=== PATIENT | female | born 1985 | race Caucasian/White ===

== ENCOUNTER 2017-01-09 10:44 | Observation (INO) | payer OTHER ==
[~2017-01-09] VITALS: Ht 180.3 cm; Wt 154.6 kg
[~2017-01-09 10:44] MED LIST: CLINDAMYCIN300 M1 PO; CORTISPORIN OP7.5 ML OP; FLEXERIL PO; FLUOXETINE20 MG PO; MOTRIN800 MG PO; NO HOME MEDS; TESSALON PER100 MG PO; ULTRAM50 M1 PO; ZPAK PO
[2017-01-09 11:56] LABS: HEMATOCRIT 41.9 % (37.0-47.0); HEMOGLOBIN 14.1 g/dl (12.0-16.0); IMMATURE GRANULOCYTES 0.4 % (0.0-1.0); MEAN CELL VOLUME 91.1 fL CALC (80.0-100.0); MEAN CORPUSCULAR HGB 30.7 pG CALC (26.0-32.0); MEAN CORPUSCULAR HGB CONC 33.7 g/L CALC (32.0-36.0); NEUT# 6.2 thou/uL (2.00-7.15); RED BLOOD COUNT 4.6 mill/uL (4.20-5.60); RED CELL DISTRI WIDTH 13.3 % (11.5-15.5)
[2017-01-09 12:02] LABS: BARBITURATES NEGATIVE (NEGATIVE); COCAINE NEGATIVE (NEGATIVE); METHADONE NEGATIVE (NEGATIVE); OXCYCODONE NEGATIVE (NEGATIVE); TETRAHYDROCANNABIONOL NEGATIVE (NEGATIVE); TRICYLIC ANTIDEPRESSANTS NEGATIVE (NEGATIVE)
[2017-01-09 12:03] LABS: ALKALINE PHOSPHATASE 57 u/l (38-126); ANION GAP 12 (6-22 (CALC)); BILIRUBIN, TOTAL 0.4 mg/dL (0.0-1.4); BUN 7 mg/dL (7-17); BUN/CREATININE RATIO 11 (12-20 (CALC)); CALCIUM 9.4 mg/dL (8.4-10.2); CARBON DIOXIDE 25 mmol/l (22-30); CHLORIDE 106 mmol/l (95-108); CREATININE 0.7 mg/dL (0.5-1.0); GFR > 60 ML/MIN (>=60 (CALC)); GFR FOR AFR.AMER. > 60 ML/MIN (>=60 (CALC)); GLUCOSE 85 mg/dL (65-105); POTASSIUM 4.6 mmol/l (3.5-5.1); SGOT/AST 14 u/l (14-36); SGPT/ALT 33 u/l (9-52); SODIUM 139 mmol/l (137-146); TOTAL PROTEIN 6.4 g/dL (6.3-8.2)
[2017-01-09] MEDS ORDERED: VYVANSE40 M1 PO (13:24)
[2017-01-09] MEDS ORDERED: LATUDA40 MG PO (13:25)
[2017-01-09 15:52] VITALS: BP 152/77
[2017-01-09 20:00] VITALS: BP 122/62
[2017-01-10] VITALS: BP 127/76
[2017-01-10 04:00] VITALS: BP 136/77
[2017-01-10 06:00] VITALS: BP 79/39
[2017-01-10 07:07] LABS: CHOLESTEROL HDL RATIO 6.7 (<4.4 (CALC))
[2017-01-10] MEDS ORDERED: AMLODIPINE BESYL5 MG PO (09:17)
[2017-01-10] MEDS ORDERED: LIPITOR10 M1 PO (09:18)
[2017-01-10] MEDS ORDERED: NICOTINE T21 MG/PATC TD (09:18)
[2017-01-10 09:20] VITALS: BP 138/71
== END 2017-01-10 10:16 | disposition home or self-care (01) | DRG 313 ==
LOC: ENPENDDIS → ED 10:44 → ED-I 12:58 → ED 13:25 → ICU 13:26
PROVIDERS: Emergency Medicine; ADMIT Internal Medicine; ATTEND Internal Medicine
DX: R07.89 Other chest pain (principal); E66.01 Morbid (severe) obesity due to excess calories; I10 Essential (primary) hypertension; F31.9 Bipolar disorder, unspecified; F41.9 Anxiety disorder, unspecified; F17.210 Nicotine dependence, cigarettes, uncomplicated; F98.8 Other specified behavioral and emotional disorders with onset usually occurring in childhood and adolescence
CPT/HCPCS: G0378

== ENCOUNTER 2017-03-09 17:49 | Emergency (ER) | payer OTHER ==
[~2017-03-09] VITALS: Ht 180.3 cm; Wt 151.0 kg
[~2017-03-09 17:49] MED LIST changes: +AMLODIPINE BESYL5 MG PO; +LATUDA40 MG PO; +LIPITOR10 M1 PO; +NICOTINE T21 MG/PATC TD; +VYVANSE40 M1 PO
[2017-03-09 20:25] LABS: HEMATOCRIT 42.8 % (37.0-47.0); HEMOGLOBIN 14.4 g/dl (12.0-16.0); IMMATURE GRANULOCYTES 0.5 % (0.0-1.0); MEAN CELL VOLUME 91.6 fL CALC (80.0-100.0); MEAN CORPUSCULAR HGB 30.8 pG CALC (26.0-32.0); MEAN CORPUSCULAR HGB CONC 33.6 g/L CALC (32.0-36.0); RED BLOOD COUNT 4.67 mill/uL (4.20-5.60); RED CELL DISTRI WIDTH 13.2 % (11.5-15.5)
[2017-03-09 20:26] LABS: NEUT# 8.93 thou/uL (2.00-7.15)
[2017-03-09 20:27] LABS: URINE BILIRUBIN - DIPSTICK NEGATIVE (NEGATIVE); URINE BLOOD DIPSTICK NEGATIVE (NEGATIVE); URINE CLARITY CLOUDY; URINE COLOR YELLOW; URINE GLUCOSE - DIPSTICK NEGATIVE (NEGATIVE); URINE KETONE TRACE mg/dL (NEGATIVE); URINE LEUK ESTERASE NEGATIVE (NEGATIVE); URINE NITRITE - DIPSTICK NEGATIVE (Negative); URINE PH 5.5 (4.5-8.0); URINE PROTEIN - DIPSTICK NEGATIVE (NEG-TRACE); URINE SPECIFIC GRAVITY 1.025; URINE UROBILINOGEN - DIPSTICK 0.2 E.U./dL (0.2)
[2017-03-09 20:35] LABS: ALBUMIN 4.3 g/dL (3.2-5.0); ALKALINE PHOSPHATASE 64 u/l (38-126); AMYLASE < 30 u/l (30-110); ANION GAP 15 (6-22 (CALC)); BILIRUBIN, TOTAL 0.5 mg/dL (0.0-1.4); BUN 10 mg/dL (7-17); BUN/CREATININE RATIO 12 (12-20 (CALC)); CARBON DIOXIDE 23 mmol/l (22-30); CHLORIDE 107 mmol/l (95-108); CREATININE 0.8 mg/dL (0.5-1.0); GFR > 60 ML/MIN (>=60 (CALC)); GFR FOR AFR.AMER. > 60 ML/MIN (>=60 (CALC)); GLUCOSE 96 mg/dL (65-105); LIPASE 33 u/l (23-300); POTASSIUM 3.9 mmol/l (3.5-5.1); SGOT/AST 17 u/l (14-36); SGPT/ALT 38 u/l (9-52); SODIUM 142 mmol/l (137-146); TOTAL PROTEIN 7.4 g/dL (6.3-8.2)
[2017-03-10] MEDS ORDERED: PROTONIX40 MG PO (00:03)
[2017-03-10 00:25] VITALS: BP 168/86
== END 2017-03-10 00:25 | disposition home or self-care (01) | DRG 392 ==
LOC: ED 17:49
PROVIDERS: Emergency Medicine
DX: R10.13 Epigastric pain (principal); I10 Essential (primary) hypertension; F31.9 Bipolar disorder, unspecified; F41.9 Anxiety disorder, unspecified; F17.210 Nicotine dependence, cigarettes, uncomplicated
CPT/HCPCS: S0164

== ENCOUNTER 2017-09-28 11:03 | Emergency (ER) | payer OTHER ==
[~2017-09-28] VITALS: Ht 180.3 cm; Wt 129.0 kg
[~2017-09-28 11:03] MED LIST changes: +CELEBREX100 M1 PO; +PROTONIX40 MG PO; +TOPAMAX50 M1 PO
[2017-09-28 11:59] LABS: HEMATOCRIT 43.8 % (37.0-47.0); HEMOGLOBIN 14.3 g/dl (12.0-16.0); IMMATURE GRANULOCYTES 0.2 % (0.0-1.0); MEAN CELL VOLUME 93.2 fL CALC (80.0-100.0); MEAN CORPUSCULAR HGB 30.4 pG CALC (26.0-32.0); MEAN CORPUSCULAR HGB CONC 32.6 g/L CALC (32.0-36.0); NEUT# 6.02 thou/uL (2.00-7.15); RED BLOOD COUNT 4.7 mill/uL (4.20-5.60); RED CELL DISTRI WIDTH 12.8 % (11.5-15.5)
[2017-09-28] MEDS ORDERED: NAPROSYN500 MG PO (12:48)
[2017-09-28] MEDS ORDERED: ZITHROMAX250 MG PO (12:48)
[2017-09-28 13:00] VITALS: BP 157/88
== END 2017-09-28 13:00 | disposition home or self-care (01) | DRG 153 ==
LOC: ED 11:03
PROVIDERS: Emergency Medicine
DX: J02.9 Acute pharyngitis, unspecified (principal); F17.210 Nicotine dependence, cigarettes, uncomplicated; I10 Essential (primary) hypertension; F31.9 Bipolar disorder, unspecified

== ENCOUNTER 2018-01-14 12:37 | Emergency (ER) | payer OTHER ==
[~2018-01-14] VITALS: Ht 180.3 cm; Wt 110.0 kg
[~2018-01-14 12:37] MED LIST changes: +NAPROSYN500 MG PO; +ZITHROMAX250 MG PO
[2018-01-14 14:52] LABS: HEMATOCRIT 42.1 % (37.0-47.0); HEMOGLOBIN 13.8 g/dl (12.0-16.0); IMMATURE GRANULOCYTES 0.3 % (0.0-5.0); MEAN CELL VOLUME 93.8 fL CALC (80.0-100.0); MEAN CORPUSCULAR HGB 30.7 pG CALC (26.0-32.0); MEAN CORPUSCULAR HGB CONC 32.8 g/L CALC (32.0-36.0); NEUT# 6.96 thou/uL (2.00-7.15); RED BLOOD COUNT 4.49 mill/uL (4.20-5.60); RED CELL DISTRI WIDTH 12.7 % (11.5-15.5)
[2018-01-14 14:55] LABS: URINE BILIRUBIN - DIPSTICK NEGATIVE (NEGATIVE); URINE BLOOD DIPSTICK LARGE (NEGATIVE); URINE CLARITY HAZY; URINE COLOR YELLOW; URINE GLUCOSE - DIPSTICK NEGATIVE (NEGATIVE); URINE KETONE NEGATIVE (NEGATIVE); URINE LEUK ESTERASE TRACE (NEGATIVE); URINE NITRITE - DIPSTICK NEGATIVE (Negative); URINE PROTEIN - DIPSTICK NEGATIVE (NEG-TRACE); URINE UROBILINOGEN - DIPSTICK 0.2 E.U./dL (0.2)
[2018-01-14 14:56] LABS: URINE BACTERIA FEW hpf; URINE EPITHELIAL CELLS MODERATE EPI/hpf (0-FEW); URINE RBC 25-50 RBC/hpf (0-5); URINE WBC 0-2 WBC/hpf (0-5)
[2018-01-14 14:57] LABS: BARBITURATES NEGATIVE (NEGATIVE); COCAINE NEGATIVE (NEGATIVE); METHADONE NEGATIVE (NEGATIVE); OXCYCODONE NEGATIVE (NEGATIVE); TETRAHYDROCANNABIONOL NEGATIVE (NEGATIVE); TRICYLIC ANTIDEPRESSANTS NEGATIVE (NEGATIVE)
[2018-01-14 15:04] LABS: ALBUMIN 3.5 g/dL (3.2-5.0); ALKALINE PHOSPHATASE 46 u/l (38-126); ANION GAP 13 (6-22 (CALC)); BILIRUBIN, TOTAL 0.4 mg/dL (0.0-1.4); BUN 11 mg/dL (7-17); BUN/CREATININE RATIO 14 (12-20 (CALC)); CARBON DIOXIDE 20 mmol/l (22-30); CHLORIDE 113 mmol/l (95-108); CREATININE 0.8 mg/dL (0.5-1.0); GFR > 60 ML/MIN (>=60 (CALC)); GFR FOR AFR.AMER. > 60 ML/MIN (>=60 (CALC)); POTASSIUM 4.3 mmol/l (3.5-5.1); SGOT/AST 9 u/l (14-36); SGPT/ALT 26 u/l (9-52); SODIUM 142 mmol/l (137-146)
[2018-01-14 15:50] VITALS: BP 102/73
== END 2018-01-14 15:50 | disposition home or self-care (01) ==
LOC: ED 12:37
PROVIDERS: Emergency Medicine
DX: N99.820 Postprocedural hemorrhage of a genitourinary system organ or structure following a genitourinary system procedure (principal); R53.1 Weakness; I10 Essential (primary) hypertension; F31.9 Bipolar disorder, unspecified; F17.210 Nicotine dependence, cigarettes, uncomplicated

== ENCOUNTER 2019-01-01 03:13 | Emergency (ER) | payer OTHER ==
[~2019-01-01] VITALS: Ht 180.3 cm; Wt 127.3 kg
[2019-01-01 04:39] LABS: HEMOGLOBIN 14.4 g/dl (12.0-16.0); IMMATURE GRANULOCYTES 0.5 % (0.0-5.0); MEAN CELL VOLUME 94.6 fL CALC (80.0-100.0); MEAN CORPUSCULAR HGB CONC 32.7 g/L CALC (32.0-36.0); NEUT# 11.26 thou/uL (2.00-7.15); RED BLOOD COUNT 4.65 mill/uL (4.20-5.60)
[2019-01-01 04:40] LABS: URINE BILIRUBIN - DIPSTICK NEGATIVE (NEGATIVE); URINE BLOOD DIPSTICK NEGATIVE (NEGATIVE); URINE COLOR YELLOW; URINE GLUCOSE - DIPSTICK NEGATIVE (NEGATIVE); URINE KETONE NEGATIVE (NEGATIVE); URINE LEUK ESTERASE NEGATIVE (NEGATIVE); URINE NITRITE - DIPSTICK NEGATIVE (Negative); URINE PROTEIN - DIPSTICK NEGATIVE (NEG-TRACE); URINE SPECIFIC GRAVITY >=1.030; URINE UROBILINOGEN - DIPSTICK 0.2 E.U./dL (0.2)
[2019-01-01 04:50] LABS: ALKALINE PHOSPHATASE 50 u/l (38-126); AMYLASE 48 u/l (30-110); ANION GAP 14 (6-22 (CALC)); BILIRUBIN, TOTAL 0.3 mg/dL (0.0-1.4); BUN 15 mg/dL (7-17); BUN/CREATININE RATIO 19 (12-20 (CALC)); CARBON DIOXIDE 23 mmol/l (22-30); CHLORIDE 109 mmol/l (95-108); CREATININE 0.8 mg/dL (0.5-1.0); GFR > 60 ML/MIN (>=60 (CALC)); GFR FOR AFR.AMER. > 60 ML/MIN (>=60 (CALC)); LIPASE 24 u/l (23-300); POTASSIUM 4.3 mmol/l (3.5-5.1); SODIUM 142 mmol/l (137-146)
[2019-01-01 05:11] LABS: ALBUMIN 4.3 g/dL (3.2-5.0); SGOT/AST 34 u/l (14-36)
[2019-01-01] MEDS ORDERED: HYDROCHLOROT12.5 MG PO (06:39)
[2019-01-01] MEDS ORDERED: LOSARTAN POT50 MG PO (06:39)
[2019-01-01] MEDS ORDERED: TEMAZEPAM30 MG PO (06:40)
[2019-01-01] MEDS ORDERED: NORVASC10 M1 PO (06:40)
[2019-01-01] MEDS ORDERED: BACLOFEN10 MG PO (06:41)
[2019-01-01] MEDS ORDERED: DICLOFENAC SODI75 MG PO (06:41)
[2019-01-01 09:40] VITALS: BP 125/60
[2019-01-04] MEDS ORDERED: LYRICA150 MG PO (09:13)
== END 2019-01-01 09:49 | disposition home or self-care (01) ==
LOC: ED 03:13
PROVIDERS: Family Medicine
DX: K52.9 Noninfective gastroenteritis and colitis, unspecified (principal); I10 Essential (primary) hypertension; F17.200 Nicotine dependence, unspecified, uncomplicated; R10.33 Periumbilical pain; R11.2 Nausea with vomiting, unspecified
CPT/HCPCS: Q9967

== ENCOUNTER 2019-03-16 06:55 | Day surgery (SDC) | payer OTHER ==
[~2019-03-16] VITALS: Ht 180.3 cm; Wt 131.1 kg
[~2019-03-16 06:55] MED LIST changes: +BACLOFEN10 MG PO; +DICLOFENAC SODI75 MG PO; +GABAPENTIN400 M2 PO; +HYDROCHLOROT12.5 MG PO; +LOSARTAN POT50 MG PO; +LYRICA150 MG PO; +NORVASC10 M1 PO; +RESTORIL15 M1 PO; +TEMAZEPAM30 MG PO; +TRAMADOL HCL50 MG PO; +VYVANSE40 MG PO
[2019-03-16] MEDS ORDERED: PROTONIX40 M2 PO (07:36)
[2019-03-16] MEDS ORDERED: TRAMADOL HCL50 MG PO ×2 (09:11)
[2019-03-16 09:59] VITALS: BP 137/70
== END 2019-03-16 09:20 | disposition home or self-care (01) ==
LOC: ORM 06:55
PROVIDERS: ATTEND Anesthesiology Pain Medicine
DX: M54.5 Low back pain (principal); M12.9 Arthropathy, unspecified

== ENCOUNTER 2019-08-17 | Day surgery (SDC) | payer OTHER ==
[~2019-08-17] MED LIST changes: +CLONIDINE0.2 MG PO; +PROTONIX40 M2 PO; +PROVOCHOLINE100 MG PO
[2019-08-17] MEDS ORDERED: OXTELLAR XR300 MG PO (09:30)
[2019-08-17] MEDS ORDERED: KLONOPIN0.5 MG PO (09:31)
[2019-08-17] MEDS ORDERED: CELEBREX100 M1 PO (09:32)
[2019-08-17] MEDS ORDERED: TRAMADOL HCL50 MG PO (10:47)
== END 2019-08-17 10:58 | disposition home or self-care (01) ==
DX: M54.5 Low back pain (principal); M12.9 Arthropathy, unspecified

== ENCOUNTER 2019-09-14 | Day surgery (SDC) | payer OTHER ==
[~2019-09-14] MED LIST changes: +KLONOPIN0.5 MG PO; +OXTELLAR XR300 MG PO
[2019-09-14 07:31] LABS: HCG SERUM/URINE (NEG/POS) NEGATIVE (NEGATIVE)
== END 2019-09-14 09:25 | disposition home or self-care (01) ==
PROVIDERS: Anesthesiology Pain Medicine
DX: M54.5 Low back pain (principal); M12.9 Arthropathy, unspecified

== ENCOUNTER 2019-12-30 18:03 | Emergency (ER) | payer OTHER | END 2019-12-30 18:45 | disposition left against medical advice (07) | DRG 951 | LOC: ED 18:03 → LWOBS 18:43 | DX: Z53.21 Procedure and treatment not carried out due to patient leaving prior to being seen by health care provider (principal) ==

== ENCOUNTER 2020-05-23 15:48 | Emergency (ER) | payer OTHER ==
[~2020-05-23] VITALS: Ht 180.3 cm; Wt 127.3 kg
[2020-05-23 17:32] LABS: URINE BILIRUBIN - DIPSTICK NEGATIVE (NEGATIVE); URINE BLOOD DIPSTICK NEGATIVE (NEGATIVE); URINE COLOR YELLOW; URINE GLUCOSE - DIPSTICK NEGATIVE (NEGATIVE); URINE KETONE NEGATIVE (NEGATIVE); URINE LEUK ESTERASE NEGATIVE (NEGATIVE); URINE NITRITE - DIPSTICK NEGATIVE (Negative); URINE PH 6.5 (4.5-8.0); URINE PROTEIN - DIPSTICK NEGATIVE (NEG-TRACE); URINE UROBILINOGEN - DIPSTICK 0.2 E.U./dL (0.2)
[2020-05-23] MEDS ORDERED: REGLAN10 MG PO (18:36)
[2020-05-23 18:41] VITALS: BP 133/80
== END 2020-05-23 18:45 | disposition home or self-care (01) ==
LOC: ED 15:48
DX: G43.909 Migraine, unspecified, not intractable, without status migrainosus (principal); I10 Essential (primary) hypertension; F31.9 Bipolar disorder, unspecified; F17.210 Nicotine dependence, cigarettes, uncomplicated

== ENCOUNTER 2021-09-26 18:04 | Emergency (ER) | payer OTHER ==
[~2021-09-26 18:04] MED LIST changes: +REGLAN10 MG PO
== END 2021-09-26 19:30 | disposition left against medical advice (07) | DRG 951 ==
LOC: ED 18:04 → LWOBS 19:29
DX: Z53.21 Procedure and treatment not carried out due to patient leaving prior to being seen by health care provider (principal)

== ENCOUNTER 2022-11-06 19:51 | Emergency (ER) | payer OTHER ==
[~2022-11-06] VITALS: Ht 180.3 cm; Wt 179.2 kg
[2022-11-06] VITALS (12 sets, daily range): BP systolic 132–161; BP diastolic 90–107
[2022-11-06 20:45] LABS: EOS% 6.6 % (0-8); HEMATOCRIT 42.8 % (37.0-47.0); HEMOGLOBIN 13.1 g/dl (12.0-16.0); IMMATURE GRANULOCYTES 0.2 % (0.0-5.0); LYMPH% 32.7 % (15-41); MEAN CELL VOLUME 91.3 fL CALC (80.0-100.0); MEAN CORPUSCULAR HGB 27.9 pG CALC (26.0-32.0); MEAN CORPUSCULAR HGB CONC 30.6 g/dL CAL (32.0-36.0); NEUT# 5.18 thou/uL (2.00-7.15); NEUT% 52.5 % (42-76); RED BLOOD COUNT 4.69 mill/uL (4.20-5.60); RED CELL DISTRI WIDTH 14.1 % (11.5-15.5)
[2022-11-06 20:58] LABS: ALBUMIN 4.1 g/dL (3.2-5.0); ALKALINE PHOSPHATASE 62 u/l (38-126); BUN 14 mg/dL (7-17); BUN/CREATININE RATIO 19 (12-20 (CALC)); CARBON DIOXIDE 23 mmol/l (22-30); CHLORIDE 107 mmol/l (95-108); CREATININE 0.8 mg/dL (0.5-1.0); GFR FOR AFR.AMER. > 60 ML/MIN (>=60 (CALC)); GFR OTHER RACES > 60 ML/MIN (>=60 (CALC)); SGOT/AST 24 u/l (14-36); SODIUM 139 mmol/l (137-146); TOTAL PROTEIN 6.9 g/dL (6.3-8.2)
[2022-11-06 21:05] LABS: ANION GAP 13 (6-22 (CALC)); POTASSIUM 4.1 mmol/l (3.5-5.1)
[2022-11-06 22:45] LABS: URINE BILIRUBIN - DIPSTICK NEGATIVE (NEGATIVE); URINE BLOOD DIPSTICK NEGATIVE (NEGATIVE); URINE COLOR YELLOW; URINE GLUCOSE - DIPSTICK NEGATIVE (NEGATIVE); URINE KETONE NEGATIVE (NEGATIVE); URINE LEUK ESTERASE NEGATIVE (NEGATIVE); URINE PH 5.5 (4.5-8.0); URINE PROTEIN - DIPSTICK NEGATIVE (NEG-TRACE); URINE SPECIFIC GRAVITY >=1.030; URINE UROBILINOGEN - DIPSTICK 0.2 E.U./dL (0.2)
[2022-11-06 22:48] LABS: URINE NITRITE - DIPSTICK NEGATIVE (Negative)
== END 2022-11-06 23:33 | disposition home or self-care (01) ==
LOC: ED 19:51
PROVIDERS: Family Medicine
DX: R60.0 Localized edema (principal); I10 Essential (primary) hypertension; F31.9 Bipolar disorder, unspecified; E78.00 Pure hypercholesterolemia, unspecified; F17.210 Nicotine dependence, cigarettes, uncomplicated

== ENCOUNTER 2023-07-03 23:15 | Emergency (ER) | payer OTHER ==
[~2023-07-03] VITALS: Ht 180.3 cm; Wt 182.0 kg
[~2023-07-03 23:15] MED LIST changes: +BACTRIM DS1 TAB PO
[2023-07-03 23:28] VITALS: BP 154/109
[2023-07-03 23:30] VITALS: BP 170/105
[2023-07-03 23:45] VITALS: BP 141/99
[2023-07-04] VITALS: BP 156/107
[2023-07-04 00:15] VITALS: BP 164/105
[2023-07-04 00:26] LABS: BASO% 1.3 % (0-3); EOS% 6.2 % (0-8); HEMATOCRIT 43.3 % (37.0-47.0); HEMOGLOBIN 13.4 g/dl (12.0-16.0); IMMATURE GRANULOCYTES 0.1 % (0.0-5.0); LYMPH% 34.3 % (15-41); MEAN CELL VOLUME 91.5 fL CALC (80.0-100.0); MEAN CORPUSCULAR HGB 28.3 pG CALC (26.0-32.0); MEAN CORPUSCULAR HGB CONC 30.9 g/dL CAL (32.0-36.0); NEUT# 4.47 thou/uL (2.00-7.15); NEUT% 51.1 % (42-76); RED BLOOD COUNT 4.73 mill/uL (4.20-5.60); RED CELL DISTRI WIDTH 14.1 % (11.5-15.5)
[2023-07-04 00:30] VITALS: BP 166/106
[2023-07-04 01:00] VITALS: BP 158/102
[2023-07-04] MEDS ORDERED: ALLEGRA-D 2424 HOUR PO (01:05)
== END 2023-07-04 01:15 | disposition home or self-care (01) ==
LOC: ED 23:15
PROVIDERS: Family Medicine
DX: J06.9 Acute upper respiratory infection, unspecified (principal); I10 Essential (primary) hypertension; F31.9 Bipolar disorder, unspecified; F17.200 Nicotine dependence, unspecified, uncomplicated; E66.01 Morbid (severe) obesity due to excess calories; Z20.822 Contact with and (suspected) exposure to COVID-19

== ENCOUNTER 2023-08-15 11:06 | Emergency (ER) | payer OTHER ==
[~2023-08-15] VITALS: Ht 180.3 cm; Wt 181.4 kg
[~2023-08-15 11:06] MED LIST changes: +ALLEGRA-D 2424 HOUR PO
[2023-08-15 12:35] VITALS: BP 187/116
[2023-08-15] MEDS ORDERED: KETOROLAC TROMETHAMINE 30 MG/ML SDV IM ONE (12:50)
[2023-08-15] MEDS ORDERED: CLINDAMYCIN HCL 150 MG CAP PO ONE (12:50)
[2023-08-15] MEDS ORDERED: methylPREDNISolone SODIUM SUCC 125 MG/2 ML SDV IM ONE (12:50)
[2023-08-15 13:00] VITALS: BP 181/111
[2023-08-15] MEDS ORDERED: CLINDAMYCIN HY150 MG PO (13:07)
[2023-08-15] MEDS ORDERED: PERCOCET 5/321 COMBO PO (13:08)
[2023-08-15] MEDS ORDERED: oxyCODONE 5MG/ ACETAMINOPHEN 325MG TAB PO ONE (13:25)
[2023-08-15 13:30] VITALS: BP 180/107
[2023-08-15 13:43] VITALS: BP 180/107
== END 2023-08-15 13:44 | disposition home or self-care (01) ==
LOC: ED 11:06
DX: K04.7 Periapical abscess without sinus (principal); K02.9 Dental caries, unspecified; I10 Essential (primary) hypertension; F31.9 Bipolar disorder, unspecified; F17.210 Nicotine dependence, cigarettes, uncomplicated